=== PATIENT | male | born 1955 | race Caucasian/White ===

== ENCOUNTER 2024-12-09 14:37 | Outpatient (CLI) | payer MEDICARE, SELFPAY ==
--- NOTE | 2024-12-09 15:00 | US_ITS ---
WS: [id number] TESTICULAR ULTRASOUND HISTORY: N50.89 - Other specified disorders of the male genital or... COMPARISON: 04/07/2017 TECHNIQUE: Real-time and color Doppler imaging utilized to perform a testicular ultrasound. Right testicle: 3.6 cm x 4.8 cm x 2.9 cm. Normal size and echogenicity. No mass or torsion. Normal color Doppler is present throughout. Systolic and diastolic velocities are both present. No significant hydrocele. Right epididymis: Normal epididymis with no increased vascularity. Left testicle: 3.2 cm x 4.4 cm x 2.1 cm. Normal size and echogenicity. No mass or torsion. Normal color Doppler is present throughout. Systolic and diastolic velocities are both present. Large LEFT hydrocele. Left epididymis: Normal epididymis with no increased vascularity. US/US scrotum [id number] IMPRESSION: 1. Large simple LEFT hydrocele has increased in size since 2017. 2. No testicular mass or torsion. 3. No epididymitis or orchitis.
== END 2024-12-09 14:38 | disposition home or self-care (01) ==
PROVIDERS: PCP Nurse Practitioner Family; Visit Provider Nurse Practitioner Family
DX: N50.89 Other specified disorders of the male genital organs (principal); N50.819 Testicular pain, unspecified; R86.8 Other abnormal findings in specimens from male genital organs; Z13.6 Encounter for screening for cardiovascular disorders; N43.3 Hydrocele, unspecified
CPT/HCPCS: 76870; 80053; 80061; 81000; 84153; 84443; 85025; 87491; 87591; 87661

== ENCOUNTER → 2024-12-15 09:21 | Outpatient (BNVA) | payer MEDICARE, SELFPAY | PROVIDERS: PCP Nurse Practitioner Family; Visit Provider Nurse Practitioner Family | DX: R97.20 Elevated prostate specific antigen [PSA] (principal) | CPT/HCPCS: 84153 ==

== ENCOUNTER 2024-12-24 07:23 | Outpatient (CLI) | payer MEDICARE, SELFPAY ==
[2024-12-24] MEDS: iohexol 350 mg/mL 500 mL Btl (per mL) IV (07:56)
[2024-12-24] MEDS: iohexol 350 mg/mL 500 mL Btl (per mL) PO (07:57)
--- NOTE | 2024-12-24 08:30 | CT_ITS ---
WS: [id number] CT ABDOMEN AND PELVIS WITH CONTRAST HISTORY: N50.89 - Other specified disorders of the male genital or... TECHNIQUE: Imaging performed of the abdomen and pelvis with IV contrast. Single phase imaging of the abdomen. Coronal and sagittal reformats are submitted. All CT scans at [facility] use at least one of these dose optimization techniques: automated exposure control; mA and/or kV adjustment per patient size (includes targeted exams where dose is matched to clinical indication); or iterative reconstruction. IV CONTRAST: Omnipaque 350; 100 mL IV. Oral contrast: Yes. DLP: 553.93 mGy.cm COMPARISON: 04/07/2017 Lower thorax: Reticular nodular opacifications at the lung bases. Single cavitary lesion with wall enhancement at the LEFT lung base measures 1.4 cm. Heart is normal size. No significant hiatal hernia. 7 mm RIGHT paraesophageal lymph node. Liver/biliary system: Normal size with no intrahepatic dilatation. Gallbladder: Normal. No gallstones or wall thickening. No pericholecystic fluid. Pancreas: Normal size pancreas and pancreatic duct. No adjacent inflammation. Spleen: Normal size spleen. No mass or infarct. Adrenal glands: Stable 12 mm nodule LEFT adrenal gland. Normal RIGHT adrenal gland. Right kidney: Normal. Left kidney: Normal. Aorta: Mild atherosclerosis with no aneurysm. Atherosclerosis in the SMA. High- grade stenosis proximal RIGHT common iliac artery. Lymphadenopathy: Celiac axis lymph node measures 1.4 cm. There are several indeterminate lymph nodes in the retroperitoneum. Majority of these lymph nodes are centered around the aorta and IVC just below the level of the renal veins. There are several lymph nodes ranging in size with the largest lymph nodes measuring 1.8 cm. These are periaortic and aortocaval lymph nodes. Smaller lymph nodes along the RIGHT iliac chain. Free fluid: None. GI tract: Stomach is normally distended. No small bowel obstruction. Normal appendix. Mild diffuse constipation. Sigmoid diverticulosis. No evidence for acute diverticulitis. Abdominal wall: Unremarkable abdominal wall. No hernia. Pelvis: Minimally distended urinary bladder. Very heterogeneous prostate gland. There is a hyperdense nodule in the prostate gland. This may represent increased cellularity but hemorrhage may also appear similar. Patent bilateral inguinal canals containing fat only. Also identified is a large simple LEFT hydrocele that was previously described by ultrasound. Hydrocele measures 11 x 6 mm. Small bilateral inguinal lymph nodes. Bones: Numerous sclerotic foci in the visualized vertebrae of the lower lumbar spine, lumbar spine and pelvis. Sclerotic focus in the proximal RIGHT femur. Additional sclerotic foci bilaterally within several of the ribs in the lower thorax. CT/CT abdomen pelvis w con* [id number] IMPRESSION: 1. 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 Numerous sclerotic foci within the visualized ribs, vertebral bodies, pelvis and proximal femur. Consid er prostate carcinoma. 2. Enlarged heterogeneous prostate gland with a hyperdense nodule. This hyperd ense nodule may be due to increased cellularity or hemorrhage. 3. New retroperitoneal lymph nodes since 2017. Highly suspicious for metastati c disease until proven otherwise. Largest lymph nodes measure 1.8 cm. 4. Smaller but enlarged celiac axis lymph node, 1.4 cm. 5. Diffuse reticular nodular changes at the lung bases. This may be interstiti al lung disease. Nodule such as this can also be seen with diffuse metastatic d isease or infection. There is a single cavitary lesion at the LEFT lung base me asuring 1.4 cm. 6. Large LEFT hydrocele. 7. Mild sigmoid diverticulosis. No acute diverticulitis.
== END 2024-12-24 07:24 | disposition home or self-care (01) ==
LOC: RAD 07:23
PROVIDERS: PCP Nurse Practitioner Family; Visit Provider Nurse Practitioner Family
DX: N50.89 Other specified disorders of the male genital organs (principal); R35.0 Frequency of micturition; R39.12 Poor urinary stream; R97.20 Elevated prostate specific antigen [PSA]; R10.9 Unspecified abdominal pain
CPT/HCPCS: 74177

== ENCOUNTER → 2025-02-15 13:33 | Outpatient (BNVA) | payer MEDICARE, SELFPAY | PROVIDERS: PCP Nurse Practitioner Family; Visit Provider Nurse Practitioner Family | DX: R97.20 Elevated prostate specific antigen [PSA] (principal) | CPT/HCPCS: 84153 ==

== ENCOUNTER 2025-02-17 09:52 | Outpatient (CLI) | payer MEDICARE, SELFPAY ==
--- NOTE | 2025-02-17 10:00 | CT_ITS ---
WS: [id number] CT chest w con* [id number] HISTORY: R91.8 - Other nonspecific abnormal finding of lung field TECHNIQUE: Axial imaging performed through the thorax. Coronal and sagittal reformats are submitted. All CT scans at [facility] use at least one of these dose optimization techniques: automated exposure control; mA and/or kV adjustment per patient size (includes targeted exams where dose is matched to clinical indication); or iterative reconstruction. CONTRAST: Omnipaque 350; 100 mL IV. DLP: 401.72 mGy.cm COMPARISON: 12/24/2024 Lungs and central airway: Diffuse reticular nodular changes throughout both lungs. Thickening and nodularity along the fissures. Peribronchial nodules. There is a cavitary lesion with enhancing wall in the LEFT lower lobe measures 1.3 x 1.3 cm. Subpleural scattered opacifications. Pleura: Normal. No pleural effusion. Heart and pericardium: Normal size heart with no pericardial effusion. Mediastinum and chidi: Extensive mediastinal and hilar lymphadenopathy. Largest RIGHT paratracheal lymph node 2.4 cm. Extensive bilateral hilar lymphadenopathy with the largest on the RIGHT 3.0 cm in the LEFT 1.8 cm. Subcarinal lymph node 3.1 cm. Lymphoid tissue extends along the proximal bronchial tree greatest on the RIGHT. Vessels: Mild atherosclerosis aorta. No aneurysm. Normal size pulmonary artery. Chest wall and lower neck: No axillary lymph nodes. Upper abdomen: LEFT adrenal mass 1.7 x 1.5 cm. Normal RIGHT adrenal gland. Heterogeneous appearance of the spleen is probably due to early phase during contrast injection. Small hiatal hernia. RIGHT celiac axis lymph node 1.7 cm. Osseous structures: Extensive sclerotic foci within the bones of the thoracic spine, sternum and ribs. CT/CT chest w con* [id number] IMPRESSION: 1. Diffuse reticular nodular airspace disease throughout both lungs. These fin dings could be noted with metastatic disease and lymphangitic spread of tumor a nd also interstitial lung disease. 2. LEFT lower lobe cavitary mass with thick enhancing wall measures 1.3 x 1.3 cm. Differential includes cavitary neoplasm, infection, necrotizing granulomato us disease from sarcoid. 3. Extensive mediastinal and hilar lymphadenopathy. 4. LEFT adrenal mass 1.7 x 1.5 cm. Metastatic disease versus adenoma. 5. Numerous sclerotic foci within the bones of the thoracic spine, sternum and ribs. Highly suspicious for metastatic bone disease. Consider prostate. 6. Reidentified celiac axis lymph node 1.7 cm which is enlarged.
[2025-02-17] MEDS: iohexol 350 mg/mL 500 mL Btl (per mL) IV (10:10)
== END 2025-02-17 09:53 | disposition home or self-care (01) ==
LOC: RAD 09:53
PROVIDERS: PCP Nurse Practitioner Family; Visit Provider Nurse Practitioner Family
DX: R91.8 Other nonspecific abnormal finding of lung field (principal); D35.02 Benign neoplasm of left adrenal gland; R93.7 Abnormal findings on diagnostic imaging of other parts of musculoskeletal system
CPT/HCPCS: 71260

== ENCOUNTER 2025-02-23 07:57 | Oncology outpatient (recurring) (ONCR) | payer MEDICARE, SELFPAY ==
[2025-02-23 09:38] LABS: Hematocrit 46.3 % (37-53); Hemoglobin 15.40 g/dL (11.27-16.99); Mean Corpuscular HGB Conc 33.3 g/dL (30-55); Mean Corpuscular Hemoglobin 28.9 pg (27-33); Mean Corpuscular Volume 86.9 fl (82-101); Nucleated Red Blood Cells % 0 %; Platelet Count 407 10^3/cmm (157-399); Red Blood Count 5.33 10^6/uL (3.85-5.65); White Blood Count 8.80 10^3/uL (3.29-11.43)
[2025-02-23 09:50] LABS: Alanine Aminotransferase 19 U/L (0-41); Albumin Level 4.3 g/dL (3.5-5.2); Alkaline Phosphatase 206 U/L (40-130); Anion Gap 14.0 (5-19); Aspartate Amino Transferase 19 U/L (0-40); Blood Urea Nitrogen 13 mg/dL (8-23); Calcium 9.0 mg/dL (8.5-10.5); Carbon Dioxide 26 mmol/L (22-29); Chloride 106 mmol/L (98-107); Creatinine Clr Calc Pharmacy 89.5116; Globulin 2.6 g/dL (1.3-4.6); Glucose 153 mg/dL (65-115); Osmolality Calculated 297 mOsm/kg (285-295); Potassium 4.0 mmol/L (3.5-5.1); Sodium 142 mmol/L (136-145); Total Protein 6.9 g/dL (6.6-8.7)
== END 2025-03-20 23:59 | disposition home or self-care (01) ==
PROVIDERS: PCP Nurse Practitioner Family; Visit Provider Internal Medicine
DX: C61 Malignant neoplasm of prostate (principal); C79.51 Secondary malignant neoplasm of bone; R89.9 Unspecified abnormal finding in specimens from other organs, systems and tissues; Z87.891 Personal history of nicotine dependence
CPT/HCPCS: 36415; 80053; 83615; 84403; 85025; 99204

== ENCOUNTER → 2025-03-01 14:30 | Outpatient (BNVA) | payer MEDICARE, SELFPAY | PROVIDERS: PCP Nurse Practitioner Family; Visit Provider Internal Medicine | DX: J98.4 Other disorders of lung (principal); R91.1 Solitary pulmonary nodule; R59.0 Localized enlarged lymph nodes; J84.9 Interstitial pulmonary disease, unspecified; Z87.891 Personal history of nicotine dependence | CPT/HCPCS: 36415; 85610; 85730; 99204 ==

== ENCOUNTER 2025-03-02 13:28 | Outpatient (CLI) | payer MEDICARE, SELFPAY ==
--- NOTE | 2025-03-02 13:45 | USCV_ITS ---
Kendell Ribeiro Age: 69 Gender: M : 1955 Exam Date: 03/02/2025 13:56 Ordering Phys: Gagan Codrero Technologist: Exam Location: [facility] [place] Indication: pre op clearence BP: 161 / 80 HR: 74 Rhythm: Sinus Technical Quality: Adequate MEASUREMENTS (Male / Female) Normal Values 2D ECHO LV Diastolic Diameter PLAX 4.0 cm 4.2 - 5.9 / 3.9 - 5.3 cm IVS Diastolic Thickness 1.4 cm 0.6 - 1.0 / 0.6 - 0.9 cm IVS Systolic Thickness 1.5 cm LVPW Diastolic Thickness 1.4 cm 0.6 - 1.0 / 0.6 - 0.9 cm LVPW Systolic Thickness 1.4 cm LVOT Diameter 2.0 cm LV Ejection Fraction 2D Teich 76.3 % LV Ejection Fraction MOD 4C 70.0 % LV Ejection Fraction MOD 2C 62.6 % LV Ejection Fraction 2C AL 61.7 % LA Diameter 4.3 cm RA Systolic Volume 4C AL 47.1 ml RA Systolic Volume 4C MOD 43.3 ml LA Sys Volume AL 47.0 cm cubed LA Sys Volume Index AL 22.2 cm cubed/m squared Aorta at Sinotubular Diameter 3.3 cm M-MODE LA Ao Ratio MM 1.2 AV Cusp Separation MM 3.0 cm DOPPLER AV Peak Velocity 177.0 cm/s LVOT Peak Velocity 147.0 cm/s AV Area Cont Eq vti 2.7 cm squared AV Area Cont Eq pk 2.7 cm squared MV Peak Velocity 124.0 cm/s MV Area PHT 6.2 cm squared Mitral E to A Ratio 0.8 TR Peak Velocity 149.0 cm/s TR Peak Gradient 8.9 mmHg TV Peak E Velocity 85.0 cm/s PV Peak Velocity 72.0 cm/s FINDINGS Left Ventricle Normal left ventricular size, systolic function and wall thickness, with no regional wall motion abnormalities. Normal left ventricular size and systolic function, EF 60-65%. Grade 1 diastolic dysfunction. Right Ventricle Normal right ventricular size and systolic function. Right Atrium Normal right atrial size. Left Atrium Normal left atrial size. Mitral Valve Structurally normal mitral valve. Aortic Valve Structurally normal aortic valve. No aortic valve stenosis. Tricuspid Valve Insufficient TR jet to calculate RVSP Pulmonic Valve Not well visualized Pericardium Normal Aorta Normal in size IVC Not well visualized CONCLUSIONS LV systolic function is normal with EF of 60-65% Grade 1 diastolic dysfunction Alfred Suero MD (Electronically Signed) Final Date: 05 March 2025 09:56 S
== END 2025-03-02 13:29 | disposition home or self-care (01) ==
LOC: RAD 13:30
PROVIDERS: PCP Nurse Practitioner Family
DX: R91.8 Other nonspecific abnormal finding of lung field (principal); R06.00 Dyspnea, unspecified; I50.30 Unspecified diastolic (congestive) heart failure
CPT/HCPCS: 93306

== ENCOUNTER 2025-03-07 07:43 | Day surgery (SDC) | payer MEDICARE, MEDICAID, SELFPAY ==
[2025-03-07] VITALS (17 sets, daily range): BP systolic 102–173; BP diastolic 53–108; PULSE 79–104; RESP 15–29; TEMP 36.2–36.8; O2SAT 91–97; BMI 27.0
--- NOTE | 2025-03-07 08:45 | ANES.PREANE2 ---
Pre-Anesthetic Assessment Height/Weight: Height 1.8 m Weight 87.997 kg Temp Pulse Resp BP Pulse Ox O2 Del Method 98.2 F 80 18 167/108 93 Room Air 03/07/25 08:09 03/07/25 08:09 03/07/25 08:09 03/07/25 08:09 03/07/25 08:09 03/07/25 08:09 Preop Diagnosis: Lung mass, Mediastinal lymphoadenopathy Operation Date: 03/07/25 09:20 Proposed Procedures p Bronchoscopy with Cryo Biopsy [id number], 09942, 63975, R91.8, R59.0(Not Applicable) - Patience Hayward MD s Ebus(Not Applicable) - Patience Hayward MD Familial anesthetic complications: None Was Beta Ronny taken within 24 hours: N/A Was Clonidine taken within 24 hours: N/A Last intake: Intake Last Liquid Date 03/06/25 Last Liquid Time 21:30 Last Solid Date 03/06/25 Last Solid Time 15:00 Social No alcohol and No tobacco Exam alert, oriented x 3, clear to auscultation bilaterally (coarse breath sounds b/l) and regular rate & rhythm Airway Mallampati: Class III Dentition: other (none) Pulmonary lung cancer Anesthetic Plan ASA status: 3 Anesthesia: General Risk of > 500 ml blood loss (7ml/kg in children): No Medications/Allergies Home Medications ?Medication ?Instructions ?Recorded ?Confirmed ?Last Taken ?Type tamsulosin 0.4 mg capsule (Flomax) 0.4 mg PO DAILY #30 caps 12/09/24 03/04/25 03/06/25 Rx lisinopril 20 mg tablet 20 mg PO DAILY #30 tabs 03/02/25 03/04/25 03/06/25 Rx Allergies Allergy/AdvReac Type Severity Reaction Status Date / Time No Known Allergies Allergy Verified 03/02/25 10:28 [facility] [place] Anesthesia Medical History No pertinent past medical history Surgical History No pertinent past surgical history Social History Smoking and tobacco/nicotine status: former use of tobacco/nicotine (1ppd X 55 years. quit 2022) Second hand smoke exposure: No Alcohol intake: current Alcohol intake frequency: few times a month Alcohol type: beer Substance/Drug Use: never Lives independently: Yes Household members: family Marital status: / Current occupational status: unemployed Current gender identity: Male Special alexys needs: No Data Anesthesia Cardiac Studies: Echocardiogram 03/02/25
--- NOTE | 2025-03-07 09:45 | W.PM.OPSUD ---
Surgery/Procedure H&P Update DATE OF PROCEDURE: March 07, 2025 DATE H&P PERFORMED: 03/01/25 CHANGES TO PREVIOUS DOCUMENTATION: Patient was seen and examined. No change in his clinical status since his last visit in my clinic. No latex allergy. No AC or AP use. Has been NPO since last night. Agreed to proceed with Bronchosocpy and EBUS with Cryobiopsy. PREOP DIAGNOSIS: Lung mass, Mediastinal lymphoadenopathy PLANNED PROCEDURE: Operation Date: 03/07/25 09:20 Proposed Procedures p Bronchoscopy with Cryo Biopsy 81920, 16340, 97039, R91.8, R59.0(Not Applicable) - Patience Hayward MD s Ebus(Not Applicable) - Patience Hayward MD
[2025-03-07] MEDS: lidocaine 2% INJ 20 mL XX (10:19)
[2025-03-07] MEDS: EPINEPHrine 1 MG in sodium chloride 0.9% 19 ML XX (11:31)
--- NOTE | 2025-03-07 11:39 | P.BOP_ITS ---
Interventional Pulmonary Immediate Brief Operative Note: * Date of Procedure:? * Preoperative Diagnosis:? * Postoperative Diagnosis:?[Same as pre-op] * Procedures Performed: * ?Bronchoalveolar lavage (BAL) 74378 * ?Endobronchial ultrasound (EBUS)-guided TBNA 52128 * ?Transbronchial lung biopsy (TBLB) 16291 * Transbronchial lung biopsy (TBLB) 67014 * ?Endobronchial biopsy 59514 * * Surgeon / Director Of Channel Marketing:?Patience Hayward MD * Anesthesia: * ?General anesthesia * Findings: Extensive mediastinal and hilar lymphadenopathy. Right upper lobe subsegmental airway obstruction with a web * Estimated Blood Loss (EBL):?[Minimal] * Specimens: * ?BAL fluid left lower lobe * ?TBNA from station(s) 11R, 4R, 7, 4L and 11L * Cryo biopsy from 11L and station 7 * Complications:?None * Disposition:?Transferred to PACU in stable condition. Patience Hayward MD, FACP Interventional Pulmonogist
--- NOTE | 2025-03-07 11:39 | W.PM.BPON ---
Interventional Pulmonary Immediate Brief Operative Note: Date of Procedure:? Preoperative Diagnosis:? Postoperative Diagnosis:?[Same as pre-op] Procedures Performed: ?Bronchoalveolar lavage (BAL) 59219 ?Endobronchial ultrasound (EBUS)-guided TBNA 47240 ?Transbronchial lung biopsy (TBLB) 57394 Transbronchial lung biopsy (TBLB) 08148 ?Endobronchial biopsy 54858 Surgeon / Lay Out Maker:?Patience Hayward MD Anesthesia: ?General anesthesia Findings: Extensive mediastinal and hilar lymphadenopathy. Right upper lobe subsegmental airway obstruction with a web Estimated Blood Loss (EBL):?[Minimal] Specimens: ?BAL fluid left lower lobe ?TBNA from station(s) 11R, 4R, 7, 4L and 11L Cryo biopsy from 11L and station 7 Complications:?None Disposition:?Transferred to PACU in stable condition. Patience Hayward MD, FACP Interventional Pulmonogist
[2025-03-07] MEDS: fentaNYL 50 mcg/mL INJ 2mL IVP (12:08)
[2025-03-07] MEDS: phenol oral Spray 177 mL 3 SPRAY MUCOUS MEM (12:31)
--- NOTE | 2025-03-07 12:43 | PM.OP ---
Operative Report Date of procedure: March 07, 2025 Pre-op diagnosis: Left lower lobe cavitary nodule Mediastinal lymphadenopathy Hilar lymphadenopathy Post-op diagnosis: Same Procedure done: Bronchoscopy with endobronchial ultrasound Implants: None Surgeon: Patience Hayward MD Estimated blood loss: Minimal Complications: None Findings: Medications: Lidocaine 2% (12 mL) applied to the tracheobronchial tree Anesthesia: General anesthesia per anesthesia team Procedure: Pre-Anesthesia Assessment Esko Protocol: Pre-procedure Verification: Prior to the procedure, the patient's identity was confirmed using full name, date of , and medical record number. Identity verification included a review of all relevant medical records, history, physical examination, medications, allergies, and previous anesthesia tolerance. Risks, benefits, sedation options, and associated risks were reviewed with the patient, and informed consent was obtained after addressing all questions. Time-Out: Immediately before the procedure, a time-out was conducted to confirm patient identification, procedure details, consent, image labeling, and the need for prophylactic antibiotics. This was verified by the physician, nurse, anesthesiologist, and refrigeration service inspector. Outcome: The procedure was completed without difficulty, and the patient tolerated it well. A thorough airway exam was performed after passage of the bronchoscope. The larynx and vocal cords were anatomically normal. The trachea was anatomically normal. The right sided airway was anatomically normal. There was evidence of anterior right upper lobe subsegmental obstruction by awaked or endobronchial tumor. No secretions. The left sided airway was anatomically normal without endobronchial lesions. No secretions. The therapeutic bronchoscope was removed and the EBUS scope was inserted. A complete EBUS exam was performed: Level 11L station was identified with the EBUS scope at the LLL/L hilum and 4 passes were made using a 22G Olympus TBNA needle. Level 4L station was identified with the EBUS scope at the lateral LMSB and 4 passes were made using a 22G Olympus TBNA needle. Level 7 station was identified with the EBUS scope at the medial LMSB/RMSB and 4 passes were made using a 22G Olympus TBNA needle.? Level 4R station was identified with the EBUS scope at the lateral RMSB and 4 passes were made using a 22G Olympus TBNA needle. Level 11R station was identified with the EBUS scope at the RBI/R hilum and 4 passes were made using a 22G Olympus TBNA needle.? Transbronchial biopsies were performed of the 11L lymph node through the existing TBNA puncture hole using 1.1mm Cryotherapy probe). 5 # of samples were obtained. ([id number]) Transbronchial biopsies were performed of the 11L lymph node through the existing TBNA puncture hole using 1.1mm Cryotherapy probe). 5 # of samples were obtained. (81839) Endobronchial biopsy were performed at the RUL anterior-inferior segment using 1.1 cryotherapy probe which was complicated with mild bleeding that required 2 cc of epinephrine (1:20,000 concentration), no further biopsy was performed. The bronchoscope was advanced until wedged at the desired location for bronchoalveolar lavage.? BAL was performed in the left lower lobe of the lung.? 120 mL of fluid were instilled.?35 mL were returned. ([id number]) [place] Bleeding Scale: Grade 2 Following completion of all diagnostic and therapeutic procedures, hemostasis was verified.? The scope was removed and procedure concluded In summary, the following procedures were performed: 35212 BAL, (Bronchoalveolar Lavage), 70073 EBBX (Endobronchial biopsies), 99938 TBBX, (Transbronchial biopsies, first lobe), 08089 TBBX addional cryobiopsy of the second lymph node 47524 cEBUS 3 or more lesions, (Central curvelinear EBUS 3 or more lesions),? Patience Hayward MD, FACP, ROBBIE Interventional Pulmoanry.
[2025-03-07] MEDS: midazolam 1 mg/mL INJ 2 mL 2 MG IVP (13:51)
[2025-03-07] MEDS: lidocaine 2% jelly 1 APPLIC/6 ML TUBE TOPICAL (13:54)
--- NOTE | 2025-03-07 14:20 | PC.NURSE ---
Patient was unable to urinate. A 8 estonian strait cath was attempted. A coude 18 estonian roblero was successfully inserted and 700 ml was drained.
--- NOTE | 2025-03-07 15:45 | ANE.PACU2 ---
Inpatient post-anesthesia follow up: Airway intact: Yes Vital signs: Temperature 97.8 F Pulse Rate 79 Respiratory Rate 18 Blood Pressure 138/89 Pulse Oximetry 92 Oxygen Delivery Me thod Room Air Oxygen Flow Rate 1.5 Fraction of Inspir ed Oxygen Hydration adequate: Yes Nausea and vomiting: No Pain level: 1 Mental status: Baseline Additional Comments: Patient unable to urinate. Roblero placed to drain. Patient declined keeping the roblero in on discharge d/t discomfort. Patient was instructed that if he continues to not be able to pass urine upon discharge he is to return to ER for urinary retention. Informed patient of how dangerous urinary retention can be. Etiology in this patient is most likely BPH w/ a missed dose of tamulosin + glycopyrrolate administration. Tamulosin given.
== END 2025-03-07 15:45 | disposition home or self-care (01) ==
PROVIDERS: PCP Nurse Practitioner Family; Visit Provider Internal Medicine
PROC: 0BJ08ZZ Inspection of Tracheobronchial Tree, Via Natural or Artificial Opening Endoscopic (ICD-10-PCS; CPT 31622; principal; 2025-03-07 09:10)
PROC: BB4BZZZ Ultrasonography of Pleura (ICD-10-PCS; 2025-03-07 09:10)
DX: C78.01 Secondary malignant neoplasm of right lung (principal); C61 Malignant neoplasm of prostate; R59.0 Localized enlarged lymph nodes; J84.9 Interstitial pulmonary disease, unspecified; Z87.891 Personal history of nicotine dependence
CPT/HCPCS: 31624; 31625; 31628; 31632; 31653; 51702; 87015; 87070; 87102; 87116; 87186; 87205; 87206; 87801; 88112; 88173; 88305; 88342; J0169; J2250; J2371; J2704; J3010; J3490; J7030; J9999

== ENCOUNTER 2025-03-07 21:20 | Emergency (ER) | payer MEDICARE, MEDICAID, SELFPAY ==
[2025-03-07 21:28] VITALS: BP 195/123; PULSE 91; RESP 31; TEMP 36.6; O2SAT 94; BMI 27.0
--- NOTE | 2025-03-07 21:28 | W.ED.GENADLT ---
HPI - General Adult General: Chief complaint: Urogenital-Male Stated complaint: CANT VOID Time Seen by Provider: 03/07/25 21:22 History of Present Illness: Patient comes in with abdominal pain. States he has been unable to void since leaving the hospital today. States he was in the hospital earlier and received anesthesia for a bronchoscopy. States he was diagnosed with lung cancer. States after the procedure they had to cath him as he was unable to urinate. He requested to remove the catheter. States he has been unable to void since then. On physical exam he is in obvious distress from pain. He he has suprapubic tenderness and fullness. He is requesting pain medication to an IV is that he states is what helped earlier. Will place a Graves catheter, check UA, give 25 mcg of fentanyl IV for pain, and reassess. Related Data Previous Rx's ?Medication ?Instructions ?Recorded tamsulosin 0.4 mg capsule (Flomax) 0.4 mg PO DAILY #30 caps 12/09/24 lisinopril 20 mg tablet 20 mg PO DAILY #30 tabs 03/02/25 tamsulosin 0.4 mg capsule (Flomax) 0.4 mg PO DAILY #30 caps 03/08/25 Allergies Allergy/AdvReac Type Severity Reaction Status Date / Time No Known Allergies Allergy Verified 03/02/25 10:28 Review of Systems : Reports: difficulty urinating [facility] ED PFSH: Medical History (Updated 03/08/25 @ 00:37 by Jules Bassett MD) No pertinent past medical history Surgical History No pertinent past surgical history Social History Smoking and tobacco/nicotine status: former use of tobacco/nicotine (1ppd X 55 years. quit 2022) Second hand smoke exposure: No Alcohol intake: current Alcohol intake frequency: few times a month Alcohol type: beer Substance/Drug Use: never Lives independently: Yes Household members: family Marital status: / Current occupational status: unemployed Current gender identity: Male Special alexys needs: No Physical Exam Const: OTHER: Moderate distress from pain HENMT: COMMON NORMALS: normocephalic and atraumatic HEAD & SCALP: normocephalic and atraumatic Neck/C-Spine: COMMON NORMALS: full ROM and supple Resp: COMMON NORMALS: normal respiratory effort, No retractions and No use of accessory muscles : OTHER: Suprapubic tenderness and fullness to palpation Extremity: COMMON NORMALS: normal to inspection and full ROM Psych: COMMON NORMALS: mental status grossly normal and cooperative Skin: COMMON NORMALS: no rashes or lesions noted and no wounds GENERAL SKIN EXAM: no rashes or lesions noted Course Vital Signs: Vital signs: Vital Signs Temperature 97.8 F 03/07/25 21:28 Pulse Rate 87 03/08/25 00:00 Respiratory Rate 18 03/07/25 23:07 Blood Pressure 142/75 03/08/25 00:00 Pulse Oximetry 92 03/08/25 00:00 Oxygen Delivery Me thod Room Air 03/08/25 00:00 Oxygen Flow Rate 2 03/07/25 23:07 MDM - General Adult Medical Decision Making On reassessment I talked to the patient about his test results. He is feeling much better after the Graves catheter was placed. We discussed leaving the catheter in. Will have him follow-up with his primary care physician. Will also have case management help him get follow-up with urology. Will discharge at this time with precautions to return for worsening or changing symptoms. Lab Data Radiology Impressions Chest X-Ray 03/07/25 22:55 IMPRESSION: 1. Negative for infiltrate. 2. Diffuse interstitial fibrotic changes along with emphysematous changes. Laboratory Results Urine Color Yellow (Yellow) 03/07/25 21:57 Urine Appearance Clear (CLEAR) 03/07/25 21:57 Urine pH 5.0 (5-7) 03/07/25 21:57 Ur Specific [place] 1.011 (1.005-1.030) 03/07/25 21:57 Urine Protein Negative (Negative) 03/07/25 21:57 Urine Glucose (UA) Negative (Normal) 03/07/25 21:57 Urine Ketones Negative (Negative) 03/07/25 21:57 Urine Blood 2+ (Negative) A 03/07/25 21:57 Urine Nitrate Negative (Negative) 03/07/25 21:57 Urine Bilirubin Negative (Negative) 03/07/25 21:57 Urine Urobilinogen 0.2 mg/dL (Negative) 03/07/25 21:57 Ur Leukocyte Esterase Negative (Negative) 03/07/25 21:57 Urine RBC 15-25 /hpf (0-2) H 03/07/25 21:57 Urine WBC None /hpf (0-5) 03/07/25 21:57 Ur Squamous Epith Cells 0-4 /hpf (0-5) H 03/07/25 21:57 Amorphous Sediment Not Reportable 03/07/25 21:57 Urine Bacteria None /hpf (NONE) 03/07/25 21:57 All radiology interpretation(s) finalized by discharge Discharge Plan Discharge Patient Disposition: Home Clinical Impression: Acute retention of urine Condition: Stable Prescriptions: New tamsulosin [Flomax] 0.4 mg capsule 0.4 mg PO DAILY Qty: 30 0RF No Action lisinopril 20 mg tablet 20 mg PO DAILY Qty: 30 5RF tamsulosin [Flomax] 0.4 mg capsule 0.4 mg PO DAILY Qty: 30 5RF Discharge Orders: Discharge ED (Routine); Ordered 03/08/25 Ordered By: Jules Bassett Referrals: Edita Ricci FNP-C [Primary Care Provider, Family Practice] Patient Instructions: Graves Catheter Care, Urinary Retention in Men (ED), Patient Portal & Nadege Instructions Print Language: Hungarian Coding Level of Care Code ED Historical Archeologist for Yossi Zamora
[2025-03-07] MEDS: lidocaine 2% Urojet 20 mL TOPICAL (21:40)
[2025-03-07] MEDS: fentaNYL 50 mcg/mL INJ 2mL 25 MCG IVP (21:40)
[2025-03-07 21:51] VITALS: BP 170/90; PULSE 90; O2SAT 92
[2025-03-07 22:12] LABS: Glucose Urine UA Negative (Normal); Nitrate Urine Negative (Negative); Specific Gravity, Urine 1.011 (1.005-1.030)
[2025-03-07 22:29] LABS: UA Manual Slide Review YES
[2025-03-07 22:30] LABS: Add Urine Microscopic? YES
--- NOTE | 2025-03-07 22:55 | XRR_ITS ---
PROCEDURE INFORMATION: Exam: XR Chest Exam date and time: 03/07/2025 11:44 PM Age: 69 years old Clinical indication: Shortness of breath; Prior surgery; Surgery date: Post-operative (0-2 days); Surgery type: Lung biopsy this morning; Additional info: SOB TECHNIQUE: Imaging protocol: Radiologic exam of the chest. Views: 2 views. COMPARISON: CT chest w con* [id number] 02/17/2025 10:08 AM FINDINGS: Lungs: Diffuse interstitial fibrotic changes along with emphysematous changes. Pleural spaces: Unremarkable. No pleural effusion. No pneumothorax. Heart/Mediastinum: Unremarkable. No cardiomegaly. Bones/joints: Unremarkable. XR/XR chest 2V* [id number] IMPRESSION: 1. Negative for infiltrate. 2. Diffuse interstitial fibrotic changes along with emphysematous changes.
[2025-03-07 23:07] VITALS: PULSE 83; RESP 18; O2SAT 93
[2025-03-07] MEDS: methylPREDNISolone sod succ 125 mg/2 mL INJ IVP (23:25)
[2025-03-08] VITALS: BP 142/75; PULSE 87; O2SAT 92
[2025-03-08 01:02] VITALS: BP 167/72; PULSE 99; O2SAT 91
--- NOTE | 2025-03-09 09:29 | DCPLANNER ---
Referral sent to [facility] Urolog
== END 2025-03-08 01:31 | disposition home or self-care (01) ==
PROVIDERS: Emergency Provider Emergency Medicine; PCP Nurse Practitioner Family
DX: R33.8 Other retention of urine (principal); Z87.891 Personal history of nicotine dependence
CPT/HCPCS: 51702; 71046; 81001; 87086; 94640; 96374; 96375; 99285; J2919; J3010; J9999

== ENCOUNTER → 2025-03-14 13:17 | Outpatient (BNVA) | payer MEDICARE, MEDICAID, SELFPAY | PROVIDERS: PCP Nurse Practitioner Family; Visit Provider Internal Medicine | DX: R91.1 Solitary pulmonary nodule (principal); C79.82 Secondary malignant neoplasm of genital organs; R59.0 Localized enlarged lymph nodes | CPT/HCPCS: 99214 ==

== ENCOUNTER 2025-04-14 11:00 | Oncology outpatient (recurring) (ONCR) | payer MEDICARE, MEDICAID, SELFPAY ==
[2025-03-24 10:10] LABS: Hematocrit 44.2 % (37-53); Hemoglobin 14.70 g/dL (11.27-16.99); Mean Corpuscular HGB Conc 33.3 g/dL (30-55); Mean Corpuscular Hemoglobin 29.2 pg (27-33); Mean Corpuscular Volume 87.9 fl (82-101); Nucleated Red Blood Cells % 0 %; Platelet Count 441 10^3/cmm (157-399); Red Blood Count 5.03 10^6/uL (3.85-5.65); White Blood Count 7.24 10^3/uL (3.29-11.43)
[2025-03-24 10:42] LABS: Alanine Aminotransferase 11 U/L (0-41); Albumin Level 4.1 g/dL (3.5-5.2); Alkaline Phosphatase 245 U/L (40-130); Anion Gap 15.9 (5-19); Aspartate Amino Transferase 20 U/L (0-40); Blood Urea Nitrogen 15 mg/dL (8-23); Calcium 9.3 mg/dL (8.5-10.5); Carbon Dioxide 25 mmol/L (22-29); Chloride 104 mmol/L (98-107); Creatinine Clr Calc Pharmacy 87.6969; Globulin 3.1 g/dL (1.3-4.6); Glucose 119 mg/dL (65-115); Osmolality Calculated 294 mOsm/kg (285-295); Potassium 3.9 mmol/L (3.5-5.1); Sodium 141 mmol/L (136-145); Total Protein 7.2 g/dL (6.6-8.7)
[2025-03-24 11:04] LABS: Prostate Specific Antigen 1531.000 ng/mL (0-4)
[2025-03-30 12:23] LABS: Hematocrit 43.6 % (37-53); Hemoglobin 14.40 g/dL (11.27-16.99); Mean Corpuscular HGB Conc 33.0 g/dL (30-55); Mean Corpuscular Hemoglobin 28.9 pg (27-33); Mean Corpuscular Volume 87.4 fl (82-101); Nucleated Red Blood Cells % 0 %; Platelet Count 403 10^3/cmm (157-399); Red Blood Count 4.99 10^6/uL (3.85-5.65); White Blood Count 9.10 10^3/uL (3.29-11.43)
[2025-03-30 12:50] LABS: Alanine Aminotransferase 13 U/L (0-41); Albumin Level 4.0 g/dL (3.5-5.2); Alkaline Phosphatase 229 U/L (40-130); Anion Gap 14.2 (5-19); Aspartate Amino Transferase 18 U/L (0-40); Blood Urea Nitrogen 13 mg/dL (8-23); Calcium 9.0 mg/dL (8.5-10.5); Carbon Dioxide 25 mmol/L (22-29); Chloride 105 mmol/L (98-107); Creatinine Clr Calc Pharmacy 78.9272; Globulin 2.9 g/dL (1.3-4.6); Glucose 108 mg/dL (65-115); Osmolality Calculated 291 mOsm/kg (285-295); Potassium 4.2 mmol/L (3.5-5.1); Sodium 140 mmol/L (136-145); Total Protein 6.9 g/dL (6.6-8.7)
[2025-03-30 13:11] LABS: Prostate Specific Antigen 1330.000 ng/mL (0-4)
[2025-04-14] MEDS: leuprolide 22.5 mg Kit IM (10:46)
== END 2025-04-19 23:59 | disposition home or self-care (01) ==
PROVIDERS: Nurse Practitioner; PCP Nurse Practitioner Family; Visit Provider Internal Medicine
DX: Z53.9 Procedure and treatment not carried out, unspecified reason (principal); Z51.11 Encounter for antineoplastic chemotherapy; C61 Malignant neoplasm of prostate; C79.51 Secondary malignant neoplasm of bone; C77.2 Secondary and unspecified malignant neoplasm of intra-abdominal lymph nodes; R03.0 Elevated blood-pressure reading, without diagnosis of hypertension; Z79.818 Long term (current) use of other agents affecting estrogen receptors and estrogen levels; Z79.899 Other long term (current) drug therapy; Z87.891 Personal history of nicotine dependence
CPT/HCPCS: 36415; 80053; 83615; 84153; 84403; 85025; 96402; 99213; 99214; 99215; J9217

== ENCOUNTER 2025-04-19 09:29 | Emergency (ER) | payer MEDICARE, MEDICAID, SELFPAY ==
[2025-04-19 09:36] VITALS: PULSE 70; RESP 16; TEMP 36.8; O2SAT 96; BMI 25.7
[2025-04-19 09:39] VITALS: BP 203/102
--- OUTSIDE RECORDS SUMMARY | 2025-04-19 09:44 | XMS_ITS | Clinical Summary ---
Author Organization [facility] Address [address] [place] [address] Phone Care Team Providers Care Branch Operations Manager Name Role Phone Unavailable Primary Care Provider Unavailabl e Encounters Date Type Department Care Team Description 03/16/2025 External Device Data [facility] ABSTRACTION Provider, Abstract 03/15/2025 External Device Data [facility]STRACTION Provider, Abstract 03/15/2025 External Device Data [facility] ABSTRACTION Provider, Abstract 03/11/2025 Telephone [facility] [place] [address] [place] [id number] Provider, Abstract urology referral appointment 03/11/2025 Abstract [place] [address] [place] [address] Provider, Abstract from Last 3 Months Social History Tobacco Use Types Packs/Day Years Used Date Smoking Tobacco: Never Assessed Sex and Gender Information Value Date Recorded Sex Assigned at Not on file Legal Sex Male 10:43 AM CDT Gender Identity Not on file Sexual Orientation Not on file Plan of Treatment Health Maintenance Due Date Last Done Comments DTAP/TDAP/TD VACCINES (1 - Tdap) 1975 COLORECTAL SCREENING 2001 Colorectal Cancer Screening 2001 FIT-DNA Q 3 years 2001 FIT/FOBT Q 1 year 2001 Flex Sig/CT Colonography Q 5 years 2001 PNEUMOCOCCAL VACCINE 50+ YEARS (1 of 1 - PCV) 08/14/19 07 ZOSTER VACCINE (1 of 2) 2006 INFLUENZA VACCINE (#1) 2025 RSV VACCINE (60+ or ) (1 - 1-dose 75+ series) 2031
[2025-04-19 10:10] VITALS: BP 170/101; PULSE 72; O2SAT 96
--- NOTE | 2025-04-19 10:24 | W.ED.MALEGU ---
HPI - Male Genitourinary General: Chief complaint: Urogenital-Male Stated complaint: need cath out Time Seen by Provider: 04/19/25 09:37 History of Present Illness: 69-year-old male 6 weeks ago had Graves catheter placed for urinary retention at that he experienced after biopsy he is maintain the catheter in place he has not seen urology. He has a history of metastatic prostate cancer. He is taking Flomax 1 tablet daily reviewing his medicine list he is also taking Tylenol PM occasionally as a sleep aid. He states catheter does not seem to be draining as well. Has been in place for over a month now. He has also noticed some change in coloration of the Graves catheter itself at the meatus of the penis. He has not had any bleeding or discharge. He has noticed occasional leakage around the catheter. Related Data Home Medications ?Medication ?Instructions ?Recorded ?Confirmed diphenhydramine 25 1 tab PO Q4H PRN Sleep 04/19/25 04/19/25 mg-acetaminophen 500 mg tablet (Acetaminophen PM) Previous Rx's ?Medication ?Instructions ?Recorded lisinopril 20 mg tablet 20 mg PO DAILY #30 tabs 03/02/25 tamsulosin 0.4 mg capsule (Flomax) 0.4 mg PO DAILY #30 caps 03/08/25 albuterol sulfate 90 mcg/actuation 2 puff inhalation Q6H PRN 03/14/25 aerosol inhaler (Ventolin HFA) shortness of breath or wheezing #8.5 grams tiotropium bromide 2.5 2 puff inhalation DAILY #4 grams 03/14/25 mcg/actuation mist for inhalation (Spiriva Respimat) enzalutamide 80 mg tablet 160 mg (2 x 80 mg) PO DAILY #56 03/24/25 tabs ondansetron HCl 8 mg tablet 8 mg PO Q8H PRN nausea and 04/01/25 vomiting #30 tabs prochlorperazine maleate 10 mg 10 mg PO Q6H PRN nausea and 04/01/25 tablet (Compazine) vomiting #30 tabs Allergies Allergy/AdvReac Type Severity Reaction Status Date / Time No Known Allergies Allergy Verified 04/14/25 10:13 Review of Systems Const: Denies: fever(s) or chills Card: Denies: chest pain Resp: Denies: dyspnea GI: Denies: abdominal pain Musc: Denies: neck pain or back pain Skin/Breast: Denies: rash PFSH ED PFSH: Medical History No pertinent past medical history Surgical History No pertinent past surgical history Social History Smoking and tobacco/nicotine status: former use of tobacco/nicotine Second hand smoke exposure: No Alcohol intake: current Alcohol intake frequency: few times a month Alcohol type: beer Substance/Drug Use: never Lives independently: Yes Household members: family Marital status: / Current occupational status: unemployed Current gender identity: Male Special alexys needs: No Physical Exam Const: COMMON NORMALS: no acute distress GENERAL APPEARANCE: cooperative and comfortable ORIENTATION/CONSCIOUSNESS: Yes awake, Yes oriented to person, Yes oriented to place and Yes oriented to time HENMT: COMMON NORMALS: normocephalic, atraumatic and hearing grossly normal bilaterally HEAD & SCALP: normocephalic and atraumatic Resp: COMMON NORMALS: normal respiratory effort, No retractions, No use of accessory muscles and clear to auscultation bilaterally AUSCULTATION: clear to auscultation bilaterally Cardio: COMMON NORMALS: regular rate, regular rhythm and No murmurs present (Cardio) RATE: regular rate RHYTHM: regular rhythm GI: COMMON NORMALS: Soft to palpation and No hepatosplenomegaly present AUSCULTATION: Yes normoactive bowel sounds PALPATION: Yes Soft to palpation, No Tenderness to palpation present (GI), No Guarding due to palpation present (GI) and Yes No hepatosplenomegaly present Extremity: COMMON NORMALS: normal to inspection, capillary refill normal, no clubbing, cyanosis or edema, no calf tenderness and no pedal edema Neuro: SENSORIUM/ORIENTATION: Yes oriented to person, Yes oriented to place and Yes oriented to time Skin: COMMON NORMALS: no rashes or lesions noted GENERAL SKIN EXAM: no rashes or lesions noted Course Vital Signs: Vital signs: Vital Signs Temperature 98.2 F 04/19/25 09:36 Pulse Rate 72 04/19/25 10:10 Respiratory Rate 16 04/19/25 09:36 Blood Pressure 170/101 04/19/25 10:10 Pulse Oximetry 96 04/19/25 10:10 Oxygen Delivery Me thod Room Air 04/19/25 09:36 MDM - Male Medical Decision Making Bladder is not palpable on bladder scan there is no sign of any retained urine. Shared decision making with the patient he has not been taking any more Flomax than usual. He has not seen urology either. Concerned with his prostate cancer this could be removed and could have recurrence of retention. The only way for him to find if he can get by without the catheter is to remove it. Discussed with him that if we remove it and he has further urinary retention he may need to return to the emergency room. Reviewing his medication list the Tylenol PM he takes at night could cause some increased potential for urinary retention because of anticholinergic side effects of the Benadryl. Ultimately patient opted to leave the catheter in and he will follow-up with urology he does not want to risk having to return to the emergency room to have the catheter replaced should he begin to retain urine again. Encouraged him to increase his Flomax to 1 pill twice a day and follow-up with urology as soon as he is able. Graves catheter was removed and replaced with a new catheter. Patient discharged home with a leg bag and the recommendations as above. Medical Records I reviewed the patient's medical records. Lab Data I reviewed the patient's lab results. All radiology interpretation(s) finalized by discharge Discharge Plan Discharge Patient Disposition: Home Clinical Impression: Urinary retention, Metastatic adenocarcinoma to prostate Condition: Stable Prescriptions: No Action lisinopril 20 mg tablet 20 mg PO DAILY Qty: 30 5RF Spiriva Respimat 2.5 mcg/actuation mist 2 puff inhalation DAILY Qty: 4 3RF albuterol sulfate [Ventolin HFA] 90 mcg/actuation HFA aerosol inhaler 2 puff inhalation Q6H PRN (Reason: shortness of breath or wheezing) Qty: 8.5 3RF enzalutamide 80 mg tablet 160 mg PO DAILY Qty: 56 11RF Rx Instructions: Take at the same time each day May be taken with or without food ondansetron HCl 8 mg tablet 8 mg PO Q8H PRN (Reason: nausea and vomiting) Qty: 30 6RF prochlorperazine maleate [Compazine] 10 mg tablet 10 mg PO Q6H PRN (Reason: nausea and vomiting) Qty: 30 6RF tamsulosin [Flomax] 0.4 mg capsule 0.4 mg PO DAILY Qty: 30 0RF diphenhydramine-acetaminophen [Acetaminophen PM] 25-500 mg Tablet 1 tab PO Q4H PRN (Reason: Sleep) Rx Instructions: administer while awake Discharge Orders: Discharge ED (Routine); Ordered 04/19/25 Ordered By: Oswaldo Gaytan Referrals: Edita Ricci FNP-C [Primary Care Provider, Family Practice] Patient Instructions: Opioid Safety, Pain Management, Patient Portal & Nadege Instructions Activity Restrictions/Additional Instructions: Thank you for choosing [facility] for your healthcare needs today. It is very important that you follow up as instructed or that you return to the Emergency Department should you have concerns or if your condition changes or worsens in any way. Emergency department visits are focused on emergent conditions, in some cases you may require further evaluation on an outpatient basis. You were seen in the emergency room with a Graves catheter in place approximately 6 weeks ago. Catheter showed signs of wear and did require replacing. As we had discussed catheter could be removed there is a risk with your history of recurrent urinary retention. After discussion he ultimately decided to have a catheter replaced. Will recommend you follow-up with your urologist as soon as possible. (Please note that included in your discharge packet is information concerning opioid safety and pain management. This information is given to all patients were discharged from the ER regardless of their discharge diagnosis or the medicines they usually take or are prescribed.) Print Language: Slovenian Coding Level of Care Code ED Blower Installer for Yossi Zamora
== END 2025-04-19 11:15 | disposition home or self-care (01) ==
PROVIDERS: Emergency Provider Family Medicine; PCP Nurse Practitioner Family
DX: R33.9 Retention of urine, unspecified (principal); C79.82 Secondary malignant neoplasm of genital organs; Z87.891 Personal history of nicotine dependence
CPT/HCPCS: 51702; 51798; 99283

== ENCOUNTER → 2025-05-09 10:35 | Outpatient (BNVA) | payer MEDICARE, SELFPAY | PROVIDERS: PCP Nurse Practitioner Family; Visit Provider Internal Medicine | DX: R91.1 Solitary pulmonary nodule (principal); J84.9 Interstitial pulmonary disease, unspecified; C61 Malignant neoplasm of prostate; Z87.891 Personal history of nicotine dependence | CPT/HCPCS: 99213; Q3014 ==

== ENCOUNTER 2025-05-12 13:35 | Oncology outpatient (recurring) (ONCR) | payer MEDICARE, SELFPAY ==
[2025-05-12 14:08] LABS: Hematocrit 41.6 % (37-53); Hemoglobin 13.80 g/dL (11.27-16.99); Mean Corpuscular HGB Conc 33.2 g/dL (30-55); Mean Corpuscular Hemoglobin 28.8 pg (27-33); Mean Corpuscular Volume 86.7 fl (82-101); Nucleated Red Blood Cells % 0 %; Platelet Count 361 10^3/cmm (157-399); Red Blood Count 4.80 10^6/uL (3.85-5.65); White Blood Count 6.59 10^3/uL (3.29-11.43)
[2025-05-12 14:39] LABS: Alanine Aminotransferase 13 U/L (0-41); Albumin Level 4.0 g/dL (3.5-5.2); Alkaline Phosphatase 185 U/L (40-130); Anion Gap 15.2 (5-19); Aspartate Amino Transferase 14 U/L (0-40); Blood Urea Nitrogen 13 mg/dL (8-23); Calcium 8.9 mg/dL (8.5-10.5); Carbon Dioxide 25 mmol/L (22-29); Chloride 103 mmol/L (98-107); Creatinine Clr Calc Pharmacy 78.5644; Globulin 2.7 g/dL (1.3-4.6); Glucose 110 mg/dL (65-115); Osmolality Calculated 289 mOsm/kg (285-295); Potassium 4.2 mmol/L (3.5-5.1); Prostate Specific Antigen 6.310 ng/mL (0-4); Sodium 139 mmol/L (136-145); Total Protein 6.7 g/dL (6.6-8.7)
== END 2025-05-20 23:59 | disposition home or self-care (01) ==
PROVIDERS: Internal Medicine; PCP Nurse Practitioner Family; Visit Provider Internal Medicine
DX: C61 Malignant neoplasm of prostate (principal); C79.51 Secondary malignant neoplasm of bone; Z87.891 Personal history of nicotine dependence; C79.82 Secondary malignant neoplasm of genital organs; Z79.899 Other long term (current) drug therapy; R03.0 Elevated blood-pressure reading, without diagnosis of hypertension
CPT/HCPCS: 36415; 80053; 84153; 85025; 99213

== ENCOUNTER 2025-06-09 14:01 | Oncology outpatient (recurring) (ONCR) | payer MEDICARE, MEDICAID, SELFPAY ==
[2025-06-01 08:51] LABS: Hematocrit 41.7 % (37-53); Hemoglobin 13.90 g/dL (11.27-16.99); Mean Corpuscular HGB Conc 33.3 g/dL (30-55); Mean Corpuscular Hemoglobin 28.7 pg (27-33); Mean Corpuscular Volume 86.2 fl (82-101); Nucleated Red Blood Cells % 0 %; Platelet Count 363 10^3/cmm (157-399); Red Blood Count 4.84 10^6/uL (3.85-5.65); White Blood Count 6.30 10^3/uL (3.29-11.43)
[2025-06-01 09:13] LABS: Alanine Aminotransferase 12 U/L (0-41); Albumin Level 4.2 g/dL (3.5-5.2); Alkaline Phosphatase 141 U/L (40-130); Anion Gap 12.9 (5-19); Aspartate Amino Transferase 13 U/L (0-40); Blood Urea Nitrogen 12 mg/dL (8-23); Calcium 9.6 mg/dL (8.5-10.5); Carbon Dioxide 29 mmol/L (22-29); Chloride 103 mmol/L (98-107); Globulin 2.7 g/dL (1.3-4.6); Glucose 108 mg/dL (65-115); Osmolality Calculated 292 mOsm/kg (285-295); Potassium 3.9 mmol/L (3.5-5.1); Sodium 141 mmol/L (136-145); Total Protein 6.9 g/dL (6.6-8.7)
[2025-06-01 09:57] LABS: Prostate Specific Antigen 2.060 ng/mL (0-4)
== END 2025-06-19 23:59 | disposition home or self-care (01) ==
PROVIDERS: Nurse Practitioner; Nurse Practitioner Family; PCP Nurse Practitioner Family; Visit Provider Internal Medicine
DX: Z53.9 Procedure and treatment not carried out, unspecified reason (principal)
CPT/HCPCS: 36415; 80053; 82306; 84153; 85025; 99215

== ENCOUNTER 2025-07-07 11:00 | Oncology outpatient (recurring) (ONCR) | payer MEDICARE, SELFPAY ==
[2025-06-29 10:00] LABS: Hematocrit 40.9 % (37-53); Hemoglobin 13.80 g/dL (11.27-16.99); Mean Corpuscular HGB Conc 33.7 g/dL (30-55); Mean Corpuscular Hemoglobin 28.9 pg (27-33); Mean Corpuscular Volume 85.7 fl (82-101); Nucleated Red Blood Cells % 0 %; Platelet Count 371 10^3/cmm (157-399); Red Blood Count 4.77 10^6/uL (3.85-5.65); White Blood Count 6.35 10^3/uL (3.29-11.43)
[2025-06-29 10:29] LABS: Alanine Aminotransferase 13 U/L (0-41); Albumin Level 4.2 g/dL (3.5-5.2); Alkaline Phosphatase 97 U/L (40-130); Anion Gap 15.0 (5-19); Aspartate Amino Transferase 16 U/L (0-40); Blood Urea Nitrogen 12 mg/dL (8-23); Calcium 9.7 mg/dL (8.5-10.5); Carbon Dioxide 26 mmol/L (22-29); Chloride 103 mmol/L (98-107); Globulin 2.8 g/dL (1.3-4.6); Glucose 143 mg/dL (65-115); Osmolality Calculated 292 mOsm/kg (285-295); Potassium 4.0 mmol/L (3.5-5.1); Prostate Specific Antigen 0.850 ng/mL (0-4); Sodium 140 mmol/L (136-145); Total Protein 7.0 g/dL (6.6-8.7)
[2025-07-07] MEDS: denosumab-bbdz 120 mg SDV (Inpatient and Infusion Clinic Use) SUBCUT (11:20)
[2025-07-07] MEDS: leuprolide 22.5 mg Kit IM (11:27)
== END 2025-07-20 23:59 | disposition home or self-care (01) ==
PROVIDERS: Nurse Practitioner; PCP Nurse Practitioner Family; Visit Provider Internal Medicine
DX: Z51.11 Encounter for antineoplastic chemotherapy; C61 Malignant neoplasm of prostate; C7A.8 Other malignant neuroendocrine tumors; Z53.9 Procedure and treatment not carried out, unspecified reason
CPT/HCPCS: 36415; 80053; 82306; 84153; 85025; 96372; 96401; 99213; J9217; Q5136